=== PATIENT | male | born 1975 | race Caucasian/White ===

== ENCOUNTER 2023-12-27 08:51 | Outpatient (AMB) | payer OTHER, SELFPAY ==
--- NOTE | 2023-12-27 08:53 | MHC.OFFVISWM ---
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 Allergies No Known Allergies Allergy (Verified 12/27/23 09:00) Medication List - Last Reconciled 12/27/23 by Rob De Los Santos MD No Known Home Meds HPI Comments Details: Previous weight loss efforts: Keto diet, WW, exercise Sleeps: 9am-2pm (on working days), 11pm-7am on off days Breakfast: 7.30am (eggs and toast0 Lunch: 2pm (steak, rice) Dinner: 5.30pm (same Snacks: 1-2 snacks overnight when he works Exercise: Will buy an aerobic machine Fluids: Coffee/tea: no, Regular Coke: daily, juice: 3-4/wk (orange juice), ETOH: none PFSH Medical History (Updated 12/27/23 @ 09:01 by Rob De Los Santos MD) Glucose intolerance Diverticulosis Morbid obesity Surgical History Hx of tooth extraction Hx of colonoscopy History of surgery on wrist Hx of appendectomy Hx of cholecystectomy Family History Mother Diabetes Kidney disease Father No problems noted. Daughter No problems noted. Son No problems noted. Social History Alcohol intake: never Patient Tobacco Use Status: Never used Tobacco Physical Exam GI Inspection: Yes normal to inspection, Yes incision (well healed) and Yes obesity Palpation (GI): Soft to palpation Extrem Right lower extremity: normal to inspection Left lower extremity: normal to inspection Assessment & Plan Assessment & Plan (1) Morbid obesity: Code(s): E66.01 - Morbid (severe) obesity due to excess calories Category: Medical Plan: 1.? Plan for lap sleeve gastrectomy. If diaphragmatic or ventral hernias are present at time of surgery, these will be repaired laparoscopically as well. Risks and complications include possible conversion to an open procedure, anastomotic leak, bleeding requiring transfusion, small bowel obstruction, , DVT and pulmonary embolism, cardiac, or pulmonary complications, as assistant terminal manager complications such as anastomotic ulcer, insufficient weight loss and vitamin deficiencies. I emphasized the importance of close follow-up, adherence to instructions and good communication. 2. You will receive a link of our software gris to generate an individualized nutritional and exercise plan specific for you. Please send me a screenshot of the plans you will generate Meal to include lean meat (beef, fish, pork, turkey, chicken), or cape verdean yogurt, or egg whites, or beans with a salad with olive oil and fruits (berries, pears, apples, kiwi). Avoid salt, breads, potatoes, rice, pasta, desserts. ?3. If you choose shakes, each shake would be drunk slowly, like coffee in a period of 2 hours. ?4. If you choose bars, cut each bar in 4 pieces and eat each piece in 30min ?to make each bar last 2 hours. ?5. I emphasized the importance of measuring accurately the food portion and measure it when serving the food in plate ?6. The meal portions include a specific number of forks of meat and salad. You always eat the meat portion but you can replace up to half of salad/vegetables portion with rice, potatoes or pasta, or a fruit ?if you like. The less you do it the better weight loss will be. ?7. One full-size fork is what it can be scooped on the fork without falling aside and not what can be bit with the fork. Use regular forks like those you find in a typical restaurant. ?8.? Please send me weight measurements as soon as possible and then once a week. Always include your diet and exercise plan. 9. The best choice would be to purchase a stationary bike, elliptical or treadmill at home that can track calories. Let me know if you do so I can give you an exercise plan. ?10.?Goal is to lose at least 1.5-2lbs per week ?11. Goal to lose 10% of your weight before surgery, which is about 30lbs. Ultimate weight goal: 273lbs before surgery 12. Please follow the diet plan exactly without any change. If you don't like something about the plan or you feel hungry you need to communicate with me so I can help you revise the plan. You should not change the plan yourself. 13. To be scheduled for EGD to assess the stomach's anatomy. The possibility of biopsies was discussed. Patient needs to avoid use of NSAIDs and aspirin for 1 week prior to EGD. Risks of perforation and bleeding was discussed with the patient. This will be an outpatient procedure with IV sedation.
[2023-12-27 08:59] VITALS: BP 140/87; PULSE 95; TEMP 36.1; O2SAT 97; BMI 40.2
== END 2023-12-27 09:57 | disposition home or self-care (01) ==
PROVIDERS: PCP Internal Medicine; Visit Provider Surgery
DX: E66.813 Obesity, class 3 (principal); E66.01 Morbid (severe) obesity due to excess calories; Z68.41 Body mass index [BMI] 40.0-44.9, adult
CPT/HCPCS: 99204

== ENCOUNTER → 2023-12-27 08:51 | Outpatient (BNVA) | payer OTHER, SELFPAY | PROVIDERS: PCP Internal Medicine; Visit Provider Surgery ==

== ENCOUNTER 2024-01-08 09:41 | Outpatient (REF) | payer OTHER, SELFPAY ==
--- NOTE | 2024-01-08 09:46 | ECG_ITS ---
Test Reason : obesity Blood Pressure : / mmHG Vent. Rate : 067 BPM Atrial Rate : 067 BPM P-R Int : 192 ms QRS Dur : 100 ms QT Int : 384 ms P-R-T Axes : 053 -19 017 degrees QTc Int : 405 ms Normal sinus rhythm Likely normal EKG No previous ECGs available Referred By: Rob De Los Santos Electronically Signed By:DILLAN NORTON
[2024-01-08 10:59] LABS: Basophils Percent Auto 0.3 % (0-2); Eosinophils Absolute Auto 0.2 X10*3/uL (0.0-0.4); Eosinophils Percent Auto 2.5 % (0-4); Hematocrit 46.2 % (42.0-52.0); Hemoglobin 15.5 g/dl (14.0-18.0); Imm Gran Abs Auto 0.02 X10*3/uL (0.00-0.03); Imm Gran Pct Auto 0.3 % (0.0-0.4); Lymphocytes Percent Auto 30.4 % (20-40); MANUAL DIFF FLAG NO; Mean Corpuscular HGB Conc 33.5 g/dl (31.0-36.0); Mean Corpuscular Hemoglobin 29.5 pg (27.0-33.0); Mean Platelet Volume 11.5 fL (9.4-12.4); Monocytes Absolute Auto 0.5 X10*3/uL (0.1-1.2); Monocytes Percent Auto 7.9 % (2-11); Neutrophils Absolute Auto 3.8 x10*3/uL (2.0-8.3); Neutrophils Percent Auto 58.6 % (45-73); Platelet Count 205 X10*3/uL (160-400); Red Blood Count 5.25 X10*6/uL (4.60-5.80); Red Cell Distribution Width 13.5 % (11.0-16.0); White Blood Count 6.4 X10*3/uL (4.8-10.8)
[2024-01-08 11:06] LABS: Estimated Average Glucose 126 mg/dL; Hemoglobin A1C 160.2095 umol/L; Total Hemoglobin (HGBA1C) 3845.4248 umol/L
[2024-01-08 11:48] LABS: Alanine Aminotransferase 62 U/L (0-40); Albumin Level 4.3 g/dL (3.5-5.0); Alkaline Phosphatase 66 U/L (39-117); Anion Gap 14 (12-20); Aspartate Amino Transferase 59 U/L (5-37); Bilirubin Total 0.5 mg/dL (0.0-1.0); Blood Urea Nitrogen 18 mg/dL (9-16); C Reactive Protein 1.07 mg/dL (< or = 0.50); Calcium 9.4 mg/dL (8.4-10.2); Carbon Dioxide 27 mmol/L (22-29); Chloride 103 mmol/L (96-108); Cholesterol 137 mg/dL (<200); Estimated Glomerular Filt Rate > 60; Glucose Random 110 mg/dL (60-115); HDL Cholesterol 30 mg/dL (>40); Iron 93 mcg/dL (45-160); LDL Cholesterol Calculated 83 mg/dL (<100); Percent Iron Saturation 27 % (15-50); Potassium 3.8 mmol/L (3.3-5.1); Sodium 140 mmol/L (135-145); Total Iron Binding Capacity 342 mcg/dL (228-428); Triglycerides 121 mg/dL (<150); Unsaturated Iron Binding 249 ug/dL
[2024-01-08 11:57] LABS: Ferritin 377 ng/mL (20-250); TSH reflex Free T4 0.81 uIU/mL (0.32-4.0); Vitamin D 25-OH Total 12.7 ng/mL (>30)
[2024-01-08 12:03] LABS: Folate 7.3 ng/mL (> or = 4.0); Vitamin B12 458 pg/mL (200-900)
[2024-01-08 12:22] LABS: Insulin 20 uU/mL (2-29)
[2024-01-12 22:03] LABS: Zinc 84 mcg/dL (60-130)
[2024-01-14 04:34] LABS: Vitamin A 40 mcg/dL (38-98)
[2024-01-14 15:13] LABS: Vitamin B1 7 nmol/L (8-30)
== END 2024-01-08 09:42 | disposition home or self-care (01) ==
LOC: HO.XRAY 09:41
PROVIDERS: PCP Internal Medicine; Visit Provider Surgery
DX: E66.01 Morbid (severe) obesity due to excess calories (principal); E74.39 Other disorders of intestinal carbohydrate absorption; Z13.1 Encounter for screening for diabetes mellitus
CPT/HCPCS: 36415; 71046; 80053; 80061; 82306; 82607; 82728; 82746; 83036; 83525; 83540; 84425; 84443; 84590; 84630; 85025; 86140; 93005

== ENCOUNTER → 2024-01-08 09:46 | Outpatient (BNV) | payer OTHER, SELFPAY | PROVIDERS: PCP Internal Medicine; Visit Provider Internal Medicine | DX: E66.9 Obesity, unspecified (principal) | CPT/HCPCS: 93010 ==

== ENCOUNTER → 2024-01-08 10:15 | Outpatient (BNV) | payer OTHER, SELFPAY | PROVIDERS: PCP Internal Medicine; Visit Provider Radiology Diagnostic Radiology | DX: E66.01 Morbid (severe) obesity due to excess calories (principal) | CPT/HCPCS: 71046 ==

== ENCOUNTER 2024-01-15 08:14 | Outpatient (REF) | payer OTHER, SELFPAY | END 2024-01-15 08:15 | disposition home or self-care (01) | LOC: HO.US 08:14 | PROVIDERS: PCP Internal Medicine; Visit Provider Surgery | DX: E66.01 Morbid (severe) obesity due to excess calories (principal); E74.39 Other disorders of intestinal carbohydrate absorption | CPT/HCPCS: 76700; 76981 ==

== ENCOUNTER → 2024-01-15 08:18 | Outpatient (BNV) | payer OTHER, SELFPAY | PROVIDERS: PCP Internal Medicine; Visit Provider Radiology Diagnostic Radiology | DX: E66.01 Morbid (severe) obesity due to excess calories (principal) | CPT/HCPCS: 76700 ==

== ENCOUNTER 2024-01-21 09:23 | Day surgery (SDC) | payer OTHER, SELFPAY ==
--- NOTE | 2024-01-20 13:33 | HO.ANESPROP2 ---
Documented by User: Diana Mohamud NP 01/20/24 13:33 HPI - Anesthesia Eval Consult details Narrative: 48yo M for Upper Endoscopy [facility] Active Problems Active Problems: All Active Problems Vitamin B12 deficiency (Acute) Vitamin D deficiency (Acute) Glucose intolerance (Acute) Diverticulosis (Acute) Morbid obesity (Acute) Past Medical History Medical History (Updated 01/21/24 @ 09:36 by Dia Lynne RN) Eczema Glucose intolerance Diverticulosis Morbid obesity Family History Family History Mother Diabetes Kidney disease Father No problems noted. Daughter No problems noted. Son No problems noted. Surgical History Surgical History Hx of tooth extraction Hx of colonoscopy History of surgery on wrist Hx of appendectomy Hx of cholecystectomy Social History Social History Alcohol intake: never Patient Tobacco Use Status: Never used Tobacco Use of substances other than those prescribed or required for medical reasons: No Are you DNR?: No Advance Directives: No Advance Directives Information Provided: Yes Meds Allergies Allergy/AdvReac Type Severity Reaction Status Date / Time No Known Allergies Allergy Verified 01/21/24 09:36 Assessment and Plan Assessment Anesthesia Assessment: Chart Reviewed Documented by User: Vani Ly MD 01/21/24 10:04 [facility] Past Medical History Medical History (Updated 01/21/24 @ 09:36 by Dia Lynne RN) Eczema Glucose intolerance Diverticulosis Morbid obesity Family History Family History Mother Diabetes Kidney disease Father No problems noted. Daughter No problems noted. Son No problems noted. Family history of problems with anesthesia: No Surgical History Surgical History Hx of tooth extraction Hx of colonoscopy History of surgery on wrist Hx of appendectomy Hx of cholecystectomy History of Problems with Anesthesia: No Social History Social History Alcohol intake: never Patient Tobacco Use Status: Never used Tobacco Use of substances other than those prescribed or required for medical reasons: No Are you DNR?: No Advance Directives: No Advance Directives Information Provided: Yes Meds Allergies Allergy/AdvReac Type Severity Reaction Status Date / Time No Known Allergies Allergy Verified 01/21/24 09:36 Exam Airway Mallampati Class: III TM Dist: >3cm Neck ROM: Full Assessment and Plan Assessment Anesthesia Assessment: Anesthesia Plan Discussed Final Anesthetic Review Family History of Problems with Anesthesia: No History of Problems with Anesthesia: No NPO: Yes ASA Class: III Final Preanesthetic Review: No Changes in Pt Med Stat, Meds/Allgs Chart Reviewed, Consent Obtained/Reviewed and Anes Risks/Benef Reviewed Patient Risk: Intermediate Procedure Risk: Low Anesthetic Plan Anesthetic Plan: TIVA Disposition: Standard PACU
[2024-01-21 09:50] VITALS: BP 146/100; PULSE 77; RESP 15; TEMP 36.4; O2SAT 94; BMI 38.8
[2024-01-21] MEDS: Lactated Ringers 1,000 ML 80 ML IVCONT (09:57)
--- NOTE | 2024-01-21 10:55 | MHC.SHP ---
Pre-Procedural Eval Section A - 24 Hr Update-Section A only Date of Service: 01/21/24 The patient is an INPATIENT: No The patient has been examined within 24 hours of the surgical procedure. The History & Physical has been completed within 30 days and I have reviewed it.: Yes Section B - Complete if H&P > 30 days Chief Complaint: Morbid (severe) obesity due to excess calories Relevant Family History (Specify if Yes): No Relevant Social History: None Present Medications: None Medical History: No relevant PMH History of Previous Operations: No relevant previous surgery Allergies: Allergies Allergy/AdvReac Type Severity Reaction Status Date / Time No Known Allergies Allergy Verified 01/21/24 09:36 Review of Systems Sugical H&P ROS: Negative: Constitution, Cardiovascular, Respiratory, Neurological, Psychiatric, Hem-Onc, Allergic/Immunologic, Gastrointestinal, Genitourinary, Musculoskeletal, Integumentary, Endocrine and Eyes/Ears/Nose/Throat Exam Surgical H&P Exam: Normal: HEENT, Normal: Heart, Normal: Lungs, Normal: Extremities, Normal: Abdomen, Normal: Skin and Normal: Neurological Plan Diagnosis/Plan: Unchanged (EGD to assess the stomach's anatomy. Risks of bleeding and perforation were discussed with the patient and he is in agreement with the plan.) I have reviewed the history and physical and performed a pertinent physical examination on my patient. No changes have occurred unless specified. Time Spent With Patient Time: Total time managing care of this patient today ____ minutes.
--- NOTE | 2024-01-21 11:01 | PM.OP ---
Brief Operative Note Date of Service: 01/21/24 Pre-op diagnosis: Morbid obesity Post-op diagnosis: same Procedure: PROCEDURE DATE: 01/21/2024 PREOPERATIVE DIAGNOSIS: GERD POSTOPERATIVE DIAGNOSIS: ?Same as above. 1)normal endoscopy PROCEDURE: [id number]-[id number] with biopsies Surgeon: John De Los Santos M.D.. Ph.D. Education Supervisor: None ? Anesthesia: IV sedation Estimated blood loss: ?Minimal FINDINGS AND PROCEDURE: ? OPERATIVE INDICATIONS: ?The patient is a 48 year old male known to me who is interested in bariatric surgery. Based on this information I recommended an upper endoscopy to evaluate the stomach's anatomy. Risks and complications of the surgery were discussed with the patient in advance particularly the possibility of perforation or bleeding that may require surgical intervention. The patient understood the risks and was in agreement with the plan. ? PROCEDURE: After informed consent was obtained by the patient, the patient was ?transferred to the Operating Room and was placed in the supine position.? After successful induction of IV sedation, a mouth block was inserted and the patient was placed in the left lateral decubitus position. An upper endoscopy was performed next, the oropharynx and esophagus appeared within the normal limits. There was no hiatal hernia. The z-line was smooth. Two biopsies were obtained from the distal esophagus 2-3 cm proximal to the GE junction and two additional biopsies from the GE junction. The stomach was entered and it appeared to be of normal size. There was no gastritis. There was no stricture or ulcer. A biopsy was obtained from the gastric fundus and the antrum. No significant bleeding was noted from any of the biopsy sites. Retroflexion of the scope confirmed a normal GE junction. The scope was then advanced into the duodenum which appeared to be normal as well. At that point the duodenum ?and the stomach were decompressed and the scope was withdrawn from the patient's mouth. The patient extubated and was transferred in stable condition to the Recovery Room for further care. I was present and performed all steps of the procedure. There were no residents to assist with this case. Syd De Los Santos M.D., Ph.D. Surgeon: Rob De Los Santos MD Anesthesia: MAC Was an Education Supervisor used for this Procedure?: No Estimated blood loss (mL): 0 IV fluids (mL): 400 Urine output (mL): 0 (No Sharp to record output) Pathology: other (1) antrum x1, 2) fundus x1, 3) GE junction x2, 4) distal esophagus x2) Condition: stable Disposition: PACU
[2024-01-21 12:02] VITALS: BP 100/55; PULSE 115; RESP 18; TEMP 36.6; O2SAT 87
[2024-01-21 12:17] VITALS: BP 106/66; PULSE 95; RESP 18; O2SAT 96
[2024-01-21 12:32] VITALS: BP 112/73; PULSE 95; RESP 18; O2SAT 96
[2024-01-21 12:47] VITALS: BP 126/76; PULSE 91; RESP 18; TEMP 36.8; O2SAT 96
== END 2024-01-21 13:09 | disposition home or self-care (01) ==
PROVIDERS: PCP Internal Medicine; Visit Provider Surgery
PROC: 0DJ08ZZ Inspection of Upper Intestinal Tract, Via Natural or Artificial Opening Endoscopic (ICD-10-PCS; CPT 43235; principal; 2024-01-21 11:00)
DX: K21.9 Gastro-esophageal reflux disease without esophagitis (principal); E66.01 Morbid (severe) obesity due to excess calories; Z68.41 Body mass index [BMI] 40.0-44.9, adult; K57.30 Diverticulosis of large intestine without perforation or abscess without bleeding; E74.39 Other disorders of intestinal carbohydrate absorption; Z90.49 Acquired absence of other specified parts of digestive tract
CPT/HCPCS: 43239; 88305; 88313; 88342; J1596; J2003; J2250; J2704

== ENCOUNTER → 2024-01-21 09:23 | Outpatient (BNV) | payer OTHER, SELFPAY | PROVIDERS: PCP Internal Medicine; Visit Provider Surgery | DX: K21.9 Gastro-esophageal reflux disease without esophagitis (principal) | CPT/HCPCS: 43239 ==

== ENCOUNTER → 2024-01-31 08:34 | Outpatient (AMB) | payer OTHER, SELFPAY ==
--- NOTE | 2024-01-31 09:06 | A.OFFWM_ITS ---
Intake Intake Visit Reasons: (OV) BH Intake Allergies No Known Allergies Allergy (Verified 02/19/24 08:16) [facility] Medical History Obesity Eczema Glucose intolerance Diverticulosis Morbid obesity Surgical History History of esophagogastroduodenoscopy (EGD) Hx of tooth extraction Hx of colonoscopy History of surgery on wrist Hx of appendectomy Hx of cholecystectomy Family History Mother Diabetes Kidney disease Father No problems noted. Daughter No problems noted. Son No problems noted. Social History Household Members: Children Household Members Other:: minor children-joint custody w/ex- Housing: House Are you a primary respite care provider to a significant other at home: No (joint custody of children w/ex-) Do you presently have visiting nurse or other home services: No Alcohol intake: never Patient Tobacco Use Status: Never used Tobacco Behavioral Health Assessment Weight Management Therapy Therapy Notes Details The patient is a 48-year-old male presenting for a behavioral health (BH) assessment as part of a surgical weight loss program. The patient denies any history of mental health treatment or past hospitalizations/crises related to behavioral health. He also denies any current or past safety concerns, including suicidal ideation (SI), suicide attempts (SA), self-harm, or harm to others. Additionally, the patient reports no history of substance use. While there are no significant concerns related to stress or emotional eating, the patient acknowledged using food as a way to cope with mood following particularly challenging workdays due to the demands of his job. He mentioned that he sometimes rewards himself with food after rough days, though he did not indicate that this behavior is excessive or problematic. The patient's Binge Eating Scale (BES) score suggests a low risk for binge eating behavior. The PHQ-9 assessment showed no active symptoms or concerns related to depression. The mental status exam (MSE) was within normal limits, indicating that the patient?s cognitive and emotional functioning is intact and not impaired. The patient?s overall behavioral health is stable, with no evidence of significant mental health concerns or impairments in functioning. There is no indication of major emotional or behavioral issues that would interfere with the surgical weight loss program at this time. From a behavioral health perspective, the patient is cleared to proceed with the weight loss surgery program. It is recommended that the patient continue to monitor emotional eating behaviors, particularly in response to work-related stress, and consider additional strategies for stress management and emotional regulation as needed. Presenting Concerns Referral Source WMP provider. Reason for referral Completion of behavioral health assessment as part of process for weight-loss surgery. Precipitating Event Obesity. Living Situation Current Living Situation Own At risk of losing current housing? No Satisfied with current living situation? Yes Comments PT lives with his 2 children and 3 dogs. Food/Weight/Diet Expectations of change PT goals are to be healthy and loss weight. . Initial goal to lose 10% of his weight before surgery, which is about 30lbs. Ultimate weight goal: 273lbs before surgery. 304Lbs at weight check, Most recent 284L bs. . Meal plan: 4 shakes/bars during the day. 1 meal (8F/F). Exercise plan: stationary bike. 3 days at week. 650 each day. History/Relationship with food At times would reward or praise himself with food. Example of meals before starting the program: Breakfast: cereal with milk. Lunch: 2 cheeseburgers homemade. Dinner: Steak fries or mash potatoes Snacks: All day. AM: chips, candy, PM: same Drinks/Liquids: Soda (2 littler at day). Not as much water. On the days he worked his eating was based on his shift and tends to eat during work hours. History/Relationship with weight [place] as a child. 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 Started gaining weigh when got out of the . In the last 10 years, the patient's Lowest weight was 280Lbs and highest 320Lbs. History/Relationship with dieting WW, Romeo Aparicio. Tried for couple months. W/ [place] lost 30Lbs in aver 3 months. Binge Eating Do you frequently eat large amounts of food in short periods of time, not feeling physically hungry? No Do you feel out of control when you eat a large amount of food in a short period of time? No Do you eat large amounts of food rapidly and typically alone? Yes Night Eating Do you wake up at least once during the night to eat? No If you wake up in the night, do you find that it is necessary to eat something in order to fall back asleep? No Do you have little or no appetite in the morning and feel very hungry in the evening, often overeating between dinner and when you go to bed? No Social History Family history and relationship 8 years ago. 4 brothers. Parents both . + family relationships. Parental/Familial campground caretaker obligations Joint custody. 2 childre. 18 y/o D, 15 y/o S. Developmental history and status None reports. Currently WNL. Social support Children, brothers. Ex-. Community support PCP. Orthodox/Spirituality None. Cultural/Ethnic information . Legal Involvement and History Current or historical involvement with the legal system? [place] until 1999 Education Highest grade completed Bachelor's degree in nursing. Preferred learning style Auditory, Verbal, Written, Learn by doing and Visual Currently enrolled in educational program? No Interested in further educational program? No Educational Interests/Skills Health care system. 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 ) Wants help to find employment? No Meaningful activities Video games, collect [employer] books. Financial Situation Describe current financial situation Comfortable Financial assistance? None Service Service? Yes Mental Health and Addiction Treatment Current/Past substance abuse? No Comments Alcohol: None Cigarettes/Tobacco: None Cannabis/Edibles: None Psychiatric history PT denies ever been in crisis or inpatient for mental health. There is no history and/or current concern about SI/Sa and self-harm or other harm. Medical and Physical Health Summary Additional Medical History not covered in history None reported Sexual History concerns None Physical exam in the last year? Yes Pain Screening Current pain? No Pain in the last few months? No Medications Is the patient compliant with medications? Yes Does the patient have Alexander Guardian in place? Not applicable Does the patient use complimentary health approaches? No Trauma/Abuse History History of trauma? No Questionnaires PHQ-9 Over the last 2 weeks, how often have you been bothered by any of the following problems? 1. Little interest or pleasure in doing things: not at all 2. Feeling down, depressed, or hopeless: not at all 3. Trouble falling or staying asleep, or sleeping too much: not at all 4. Feeling tired or having little energy: not at all 5. Poor appetite or overeating: not at all 6. Feeling bad about yourself - or that you are a failure or have let yourself or your family down: not at all 7. Trouble concentrating on things, such as reading the newspaper or watching television: not at all 8. Moving or speaking so slowly that other people could have noticed. Or the opposite - being so fidgety or restless that you have been moving around a lot more than usual: not at all 9. Thoughts that you would be better off or of hurting yourself in some way: not at all Total score: 0 Depression Screening Interpretation: Negative Depression Screening Done: Yes 08483 - PHQ-9 Billing: Yes Source: Developed by Drs. Richard Tyler, Mandy Greco, Mj Rendon and colleagues, with an educational yamile from [employer]. Assessment & Plan Assessment & Plan (1) Adjustment disorder, unspecified: Code(s): F43.20 - Adjustment disorder, unspecified Qualifiers: Adjustment disorder type: unspecified type Qualified Code(s): F43.20 - Adjustment disorder, unspecified (2) Problems related to inappropriate diet and eating habits: Code(s): Z72.4 - Inappropriate diet and eating habits Plan From a behavioral health perspective, the patient is cleared to proceed with the weight loss surgery. He will be seen post-operatively if additional support is desired, but no further behavioral health intervention is deemed necessary at this time. The patient is encouraged to reach out for support if needed as he progresses through the surgical process and beyond. Coding Level of Care Code New Pt Psy Diag Eval (51422) Patient Type New Diagnoses Adjustment disorder, unspecified type F43.20 Adjustment disorder type: unspecified type Problems related to inappropriate diet and eating habits Z72.4 Additional Codes PHQ-9 - 26522 - PHQ-9 Billing: Yes ([id number]) Time Spent (min) 60
== END ==
PROVIDERS: PCP Internal Medicine; Visit Provider Counselor Mental Health
DX: F43.20 Adjustment disorder, unspecified (principal); Z72.4 Inappropriate diet and eating habits
CPT/HCPCS: 90791

== ENCOUNTER 2024-02-17 09:05 | Outpatient (AMB) | payer OTHER, SELFPAY ==
--- NOTE | 2024-02-17 14:13 | A.OFFVIS_ITS ---
VS Expanded 02/17/24 14:25 Height 6 ft Weight 274 lb BMI 37.2 Body Fat % 34.9 Body Fat Mass 95.7 Fat Free Mass 178.4 Visceral Fat Rating 28.5 Body Water % 49.2 Body Water Mass 134.9 Basal Metabolic Rate/Score 2,356 Intake Visit Reasons: TV Pre Op LSG 02/25/24 Allergies No Known Allergies Allergy (Verified 02/17/24 14:13) Medication List - Last Reconciled 02/17/24 by Rob De Los Santos MD cholecalciferol (vitamin D3) 125 mcg PO DAILY mecobalamin (vitamin B12) 1,000 mcg sublingual DAILY ondansetron 4 mg PO Q12H pantoprazole 40 mg PO DAILY pantoprazole 40 mg PO DAILY polyethylene glycol 3350 17 grams PO DAILY sucralfate 10 mL PO BID thiamine HCl (vitamin B1) 100 mg PO DAILY HPI HPI TV Pre Op LSG 02/25/24: Details: Start time: 2.02pm, End time: 2.32pm ?I spent 25 minutes speaking with the patient on the phone plus an additional 5 minutes reviewing and updating records for a total of 30 minutes HPI Comments Details: Overall weight loss: 29.6lbs, or 9.75% TBWL Is doing the Celebrate Rebuild protein shakes and bars and one meal PFSH Medical History (Updated 02/17/24 @ 14:15 by Rob De Los Santos MD) Obesity Eczema Glucose intolerance Diverticulosis Morbid obesity Surgical History Hx of tooth extraction Hx of colonoscopy History of surgery on wrist Hx of appendectomy Hx of cholecystectomy Family History Mother Diabetes Kidney disease Father No problems noted. Daughter No problems noted. Son No problems noted. Social History Alcohol intake: never Patient Tobacco Use Status: Never used Tobacco Telehealth Telehealth Telehealth Platform: Telephone Location of provider rendering services: practice address Location of patient: address on file Patient Identification confirmed using: Name, : Yes Telehealth method: voice only Patient verbally consented to treatment: Yes Patient verbally consented to billing insurance company: Yes Patient informed of any privacy concerns related to visit: Yes Minutes spent on Phone/Video with Pt.: 30 Assessment & Plan Assessment & Plan (1) Obesity: Code(s): E66.9 - Obesity, unspecified Category: Medical Qualifiers: Obesity type: due to excess calories Obesity classification: adult class 2 (BMI 35 - 39.9) Serious obesity comorbidity presence: without serious comorbidity Body mass index: BMI 37.0-37.9 Qualified Code(s): E66.812 - Obesity, class 2; E66.09 - Other obesity due to excess calories; Z68.37 - Body mass index [BMI] 37.0-37.9, adult Plan: 1. Plan for lap sleeve gastrectomy including upper GI endoscopy. All tests has been completed and reviewed and the patient is cleared for the surgery. ?If diaphragmatic or ventral hernias are present at time of surgery, these will be repaired laparoscopically as well. Risks and complications were discussed in detail including possible conversion to an open procedure, anastomotic leak, bleeding requiring transfusion, small bowel obstruction, , DVT and pulmonary embolism, cardiac, or pulmonary complications, as residential compl ications such as anastomotic ulcer, insufficient weight loss and vitamin deficiencies. I emphasized the importance of close follow-up, adherence to instructions and good communication. So far she has proven to be an excellent communicator and very compliant with all our directions accomplishing a great weight loss. I believe that she is an excellent candidate and she is ready. 2. Preop prescriptions were provided and explained the purpose of each one. Need to be purchased preop. Start Pantoprazole now as you get it from the pharmacy, 1 pill per day. Sucralfate and Zofran are for after surgery as needed. 3. Bowel prep: please do 7 packets ?of Miralax mixing each one with a an 8oz glass of water, crystal light, gatorade zero, or propel ?on 02/23/24 and the same amount on 02/24/24. The Miralax you begin with one packet at a time in 8oz water or crystal light, gatorade zero, or propel ?as early in the day as you can and you do them back to back until you finish them. Continue the protein shakes during ?the bowel prep. 4. Needs to purchase 1oz medicine cups . 5. Needs to purchase Children's liquid Tylenol for postop pain control. 6. Avoid aspirin, motrin, Advil, Aleve, Meloxicam, Excedrin, Ibuprofen, Naproxyn. Tylenol is OK. 7. He needs to purchase the Celebrate 4:1 protein shakes from the hospital's gift shop. 8. Will do basic preop blood work-up any day between Saturday02/18/24 and Saturday02/21/24 fasting for 12 hours and is scheduled to see the Anesthesiologist prior to the day of surgery. 9. Importance of adherence to postop folllow-up and recommendations was underscored and he understands that. 10. Stop food and bars as of tomorrow 02/18/2024 and create an aggressive meal plan with the [employer] and send me a screenshot of the plan you will create 11. No soups, broths or V8 12. The patient's?medical?history has been reviewed and they are considered low risk for post op DVT and therefore DVT prophylaxis is not considered necessary. Travel after surgery was reviewed. The patient has not disclosed any travel plans during the first 30 days after surgery and they have been advised that within the first 30 days after surgery any bus, plane, train or car travel over 2 hours in duration is contraindicated due to the possibility of developing blood clots from immobility. Any travel, needs to include periods of ambulation of 10 minutes in duration every 2 hours.? Patient was instructed to discuss any plans for travel during this period with their bariatric surgeon.? 13. Use your CPAP daily and bring it to the hospital with your mask As of tomorrow, please check your blood pressure daily in the morning. If your blood pressure is: Below 120/70: do not take the Losartan 121/71 to 135/85: take HALF Losartan Over 136/86: take the whole Losartan 14. Please take at the day of surgery the following medications: Lisinopril if the blood pressure that day is high enough to justify it based on the parameters at the previous bullet point. 15. Stop any control pills and don't use them for one month after surgery 16. Absolutely no smoking or vaping, or marijuana until the surgery and for at least the first 4 weeks. Only nicotine patches are allowed. 17. Send me weight measurements on Saturday02/21/24 and then on Saturday02/25/24, the day of surgery before you go to the hospital. 18. Avoid any steroids by mouth for any reason. Let me know if someone prescribes them to you 19. These instructions supersede anything else you read in the handbook, anything you watched in videos or classes or you were told by any other provider. If there is any conflict, you follow the above instructions and nothing else. Orders: Orders TSH reflex Free T4 Today E66.9 - Obesity, unspecified Prothrombin Time INR Today E66.9 - Obesity, unspecified Type and Screen Today E66.9 - Obesity, unspecified Partial Thromboplastin Time Today E66.9 - Obesity, unspecified Complete Blood Count Auto Diff Today E66.9 - Obesity, unspecified Insulin Today E66.9 - Obesity, unspecified Comprehensive Met. Panel Today E66.9 - Obesity, unspecified Lipid Panel Today E66.9 - Obesity, unspecified Hemoglobin A1c Today E66.9 - Obesity, unspecified C Reactive Protein Today E66.9 - Obesity, unspecified Medications: New pantoprazole 40 mg PO DAILY 90 tabs 0RF K21.9 - Gastro-esophageal reflux disea se without esophagitis sucralfate 10 mL PO BID 600 mL 2RF K21.9 - Gastro-esophageal reflux disease without esophagitis polyethylene glycol 3350 Mix each measuring cup with 8oz of water, Crystal light, or Gatorade zero, or Propel and do 7 measuring cups on 02/23/24 and another 7 measuring cups on 02/24/24 17 grams PO DAILY 238 grams 0RF Z01.818 - Encounter for other preprocedural examination ondansetron Only take one every 12 hours as needed if you have nausea 4 mg PO Q12H 20 tabs 0RF nausea and vomiting R11.0 - Nausea
[2024-02-17 14:25] VITALS: BMI 37.2
== END 2024-02-17 14:32 | disposition home or self-care (01) ==
LOC: HO.HBS 09:05
PROVIDERS: PCP Internal Medicine; Visit Provider Surgery
DX: E66.812 Obesity, class 2 (principal); Z68.37 Body mass index [BMI] 37.0-37.9, adult
CPT/HCPCS: 99499

== ENCOUNTER 2024-02-21 07:48 | Outpatient (REF) | payer OTHER, SELFPAY ==
--- NOTE | ~2024-02-21 | FL_ITS ---
EXAMINATION: XR FLUOROSCOPY UPPER GI WITH AIR CLINICAL INFORMATION: Preoperative evaluation prior to bariatric surgery COMPARISON: None TECHNIQUE: Fluoroscopic air contrast upper GI examination was performed utilizing standard techniques with thin and thick barium and effervescent granules. Numerous spot images were obtained. FINDINGS: Dual and single contrast images of the esophagus demonstrate normal caliber, contour, and mucosal pattern. No evidence of stricture, mass, or ulcerations identified. Esophageal peristalsis was normal. A small type I hiatal hernia is present. There is a small diverticulum noted in the lateral portion of the hiatal hernia. No significant gastroesophageal reflux was seen during the course of the examination and on reflux views. Dual contrast and single contrast images of the stomach demonstrated a normal contour. The gastric rugal folds have a thickened appearance, suggestive of gastritis. There is a circumscribed filling defect body in the anterior body of the stomach that likely represents a hyperplastic polyp (RF 1-12 100/176). No masses or ulcerations are seen. Contrast freely passed into the gastric antrum and duodenal bulb without delay. Single and air-contrast images of the duodenal bulb demonstrate no abnormality. The duodenal sweep has a normal appearance, course, and mucosal fold appearance. The imaged proximal jejunum has a normal fold pattern and caliber. FLUOROSCOPY TIME: 3 minutes 39 seconds Number of Spot Images: 10 Number of Cine: 12 DOSE AREA PRODUCT: [id number] uGy-m2 (microgray-meter squared) FL/FL upper GI w air IMPRESSION: 1. Small type I hiatal hernia. 2. Small diverticulum noted in the lateral portion of the hiatal hernia. 3. Thickened appearance of the gastric rugal folds, suggestive of gastritis. 4. Circumscribed filling defect body of stomach anterior wall, consistent with a hyperplastic polyp. This procedure was performed by Mejia Campos PA-C, and supervised by Dr. Cruz Electronically signed by: Haris Cruz MD 02/21/2024 05:11 PM [facility]
== END 2024-02-21 07:49 | disposition home or self-care (01) ==
LOC: HO.XRAY 07:48
PROVIDERS: PCP Internal Medicine; Visit Provider Surgery
DX: E66.01 Morbid (severe) obesity due to excess calories (principal); E74.39 Other disorders of intestinal carbohydrate absorption
CPT/HCPCS: 74246

== ENCOUNTER → 2024-02-21 07:49 | Outpatient (BNV) | payer OTHER, SELFPAY | PROVIDERS: PCP Internal Medicine; Visit Provider Physician Assistant Surgical | DX: E74.39 Other disorders of intestinal carbohydrate absorption (principal) | CPT/HCPCS: 74246 ==

== ENCOUNTER 2024-02-25 05:47 | Day surgery (SDC) | payer OTHER, SELFPAY ==
[2024-02-19 08:12] LABS: MANUAL DIFF FLAG NO
[2024-02-19 08:33] LABS: Basophils Percent Auto 0.3 % (0-2); Eosinophils Absolute Auto 0.2 X10*3/uL (0.0-0.4); Eosinophils Percent Auto 2.4 % (0-4); Hematocrit 45.9 % (42.0-52.0); Hemoglobin 15.6 g/dl (14.0-18.0); Imm Gran Abs Auto 0.02 X10*3/uL (0.00-0.03); Imm Gran Pct Auto 0.3 % (0.0-0.4); Lymphocytes Absolute Auto 2.2 X10*3/uL (1.2-4.9); Lymphocytes Percent Auto 29.1 % (20-40); Mean Corpuscular Hemoglobin 29.6 pg (27.0-33.0); Mean Corpuscular Volume 87.1 fL (80.0-98.0); Mean Platelet Volume 11.7 fL (9.4-12.4); Monocytes Absolute Auto 0.6 X10*3/uL (0.1-1.2); Neutrophils Absolute Auto 4.4 x10*3/uL (2.0-8.3); Neutrophils Percent Auto 59.9 % (45-73); Platelet Count 170 X10*3/uL (160-400); Red Blood Count 5.27 X10*6/uL (4.60-5.80); Red Cell Distribution Width 13.7 % (11.0-16.0); White Blood Count 7.4 X10*3/uL (4.8-10.8)
[2024-02-19 08:42] LABS: Estimated Average Glucose 105 mg/dL; Hemoglobin A1C 140.6522 umol/L; Hemoglobin A1c % 5.3 % (<6.0); Total Hemoglobin (HGBA1C) 4122.9924 umol/L
[2024-02-19 08:48] LABS: Prothrombin Time 11.9 SEC (10.9-12.4)
[2024-02-19 08:50] LABS: Partial Thromboplastin Time 37.4 SEC (26.0-36.8)
[2024-02-19 09:12] LABS: Alanine Aminotransferase 35 U/L (0-40); Albumin Level 4.2 g/dL (3.5-5.0); Alkaline Phosphatase 78 U/L (39-117); Anion Gap 12 (12-20); Aspartate Amino Transferase 35 U/L (5-37); Bilirubin Total 0.4 mg/dL (0.0-1.0); Blood Urea Nitrogen 17 mg/dL (9-16); C Reactive Protein 1.35 mg/dL (< or = 0.50); Calcium 9.2 mg/dL (8.4-10.2); Carbon Dioxide 25 mmol/L (22-29); Chloride 107 mmol/L (96-108); Cholesterol 118 mg/dL (<200); Estimated Glomerular Filt Rate > 60; Glucose Random 96 mg/dL (60-115); HDL Cholesterol 37 mg/dL (>40); LDL Cholesterol Calculated 64 mg/dL (<100); Sodium 140 mmol/L (135-145); Total Protein 7.8 g/dL (6.5-8.0); Triglycerides 88 mg/dL (<150)
[2024-02-19 09:43] LABS: TSH reflex Free T4 1.07 uIU/mL (0.32-4.0)
[2024-02-19 10:43] LABS: Insulin 10 uU/mL (2-29)
[2024-02-19 10:50] VITALS: BMI 36.8
--- NOTE | 2024-02-21 12:34 | P.CONAN_ITS ---
Documented by User: Diana Mohamud NP 02/21/24 12:35 HPI - Anesthesia Eval Consult details Narrative: 48yo M for Gastrectomy Sleeve,EGD,possibel Diaphragmatic Hernia,possible Ventral Hernia,possible Open PMFSH Active Problems Active Problems: All Active Problems Esophagitis determined by biopsy (Acute) Vitamin B1 deficiency (Acute) Vitamin B12 deficiency (Acute) Vitamin D deficiency (Acute) Obesity (Acute) Glucose intolerance (Acute) Diverticulosis (Acute) Morbid obesity (Acute) Past Medical History Medical History Obesity Eczema Glucose intolerance Diverticulosis Morbid obesity Family History Family History Mother Diabetes Kidney disease Father No problems noted. Daughter No problems noted. Son No problems noted. Family history of problems with anesthesia: No Surgical History Surgical History History of esophagogastroduodenoscopy (EGD) Hx of tooth extraction Hx of colonoscopy History of surgery on wrist Hx of appendectomy Hx of cholecystectomy History of Problems with Anesthesia: No Social History Social History Household Members Other:: minor children-joint custody w/ex- Are you a primary post acute care nurse to a significant other at home: No (joint custody of children w/ex-) Do you presently have visiting nurse or other home services: No Alcohol intake: never Patient Tobacco Use Status: Never used Tobacco Use of substances other than those prescribed or required for medical reasons: No Have you been hit, kicked, punched, or otherwise hurt by someone within the past year? If so, by whom?: No Spiritual Healthcare Practices: none Restorationism Healthcare Practices: none Cultural Healthcare Practices: none Are you DNR?: No Advance Directives: No Advance Directives Information Provided: Yes Advance Directives on File: No Recently lost weight without trying: No Eating poorly because of decreased appetite: No Nutrition Risks: No Nutritional Risk Poor oral hygiene: Yes (broken teeth upper left front / some extracted teeth) Meds Allergies Allergy/AdvReac Type Severity Reaction Status Date / Time No Known Allergies Allergy Verified 02/19/24 08:16 Exam Height,Weight and Vital Signs: Height 6 ft Weight 122.924 kg Pertinent Lab Results Pertinent Lab Results: Laboratory Tests 02/19/24 02/19/24 08:01 08:10 WBC 7.4 RBC 5.27 Hgb 15.6 Hct 45.9 MCV 87.1 MCH 29.6 MCHC 34.0 RDW 13.7 Plt Count 170 MPV 11.7 Immature Gran % (Auto) 0.3 Neut % (Auto) 59.9 Lymph % (Auto) 29.1 [place] % (Auto) 8.0 Eos % (Auto) 2.4 Baso % (Auto) 0.3 Lymph # (Auto) 2.2 [place] # (Auto) 0.6 Eos # (Auto) 0.2 Baso # (Auto) 0.0 Abs Immat Gran (auto) 0.02 Absolute Neuts (auto) 4.4 Absolute Nucleated RBC 0.000 Nucleated RBC % (auto) 0.0 PT 11.9 INR 1.0 APTT 37.4 H Sodium 140 Potassium 4.0 Chloride 107 Carbon Dioxide 25 Anion Gap 12 BUN 17 H Creatinine 1.06 Estim Creat Clear Calc TNP Estimated GFR > 60 Random Glucose 96 Estimat Average Glucose 105 Hemoglobin A1c % 5.3 Insulin Level 10 Calcium 9.2 Total Bilirubin 0.4 AST 35 ALT 35 Alkaline Phosphatase 78 C-Reactive Protein 1.35 H Total Protein 7.8 Albumin 4.2 Triglycerides 88 Cholesterol 118 LDL Cholesterol, Calc 64 HDL Cholesterol 37 L TSH 1.07 Blood Type O Positive Antibody Screen NEGATIVE Narrative Narrative: EKG 12/2023 Vent. Rate : 067 BPM Atrial Rate : 067 BPM P-R Int : 192 ms QRS Dur : 100 ms QT Int : 384 ms P-R-T Axes : 053 -19 017 degrees QTc Int : 405 ms Normal sinus rhythm Likely normal EKG No previous ECGs available Assessment and Plan Assessment Anesthesia Assessment: Chart Reviewed Final Anesthetic Review Family History of Problems with Anesthesia: No History of Problems with Anesthesia: No Documented by User: Bridgette Castro MD 02/25/24 08:57 HPI - Anesthesia Eval Consult details Narrative: 48yo M for EGD, Laparoscopic Sleeve Gastrectomy, possible Diaphragmatic Hernia repair, possible Ventral Hernia repair, possible Open PMFSH Active Problems Active Problems: All Active Problems Esophagitis determined by biopsy (Acute) Vitamin B1 deficiency (Acute) Vitamin B12 deficiency (Acute) Vitamin D deficiency (Acute) Obesity (Acute) Glucose intolerance (Acute) Diverticulosis (Acute) Morbid obesity (Acute) Denies [place] Past Medical History Medical History Obesity Eczema Glucose intolerance Diverticulosis Morbid obesity Family History Family History Mother Diabetes Kidney disease Father No problems noted. Daughter No problems noted. Son No problems noted. Family history of problems with anesthesia: No Surgical History Surgical History History of esophagogastroduodenoscopy (EGD) Hx of tooth extraction Hx of colonoscopy History of surgery on wrist Hx of appendectomy Hx of cholecystectomy History of Problems with Anesthesia: No Social History Social History Household Members Other:: minor children-joint custody w/ex- Are you a primary post acute care nurse to a significant other at home: No (joint custody of children w/ex-) Do you presently have visiting nurse or other home services: No Alcohol intake: never Patient Tobacco Use Status: Never used Tobacco Use of substances other than those prescribed or required for medical reasons: No Have you been hit, kicked, punched, or otherwise hurt by someone within the past year? If so, by whom?: No Spiritual Healthcare Practices: none Restorationism Healthcare Practices: none Cultural Healthcare Practices: none Are you DNR?: No Advance Directives: No Advance Directives Information Provided: Yes Advance Directives on File: No Recently lost weight without trying: No Eating poorly because of decreased appetite: No Nutrition Risks: No Nutritional Risk Poor oral hygiene: Yes (broken teeth upper left front / some extracted teeth) Meds Allergies Allergy/AdvReac Type Severity Reaction Status Date / Time No Known Allergies Allergy Verified 02/19/24 08:16 Exam Height,Weight and Vital Signs: Height 6 ft Weight 122.924 kg Vital Signs Temp Pulse Resp BP Pulse Ox O2 Del Method 02/25/24 06:35 98.6 F 86 16 111/78 95 Room Air Pertinent Lab Results Pertinent Lab Results: Laboratory Tests 02/19/24 02/19/24 08:01 08:10 WBC 7.4 RBC 5.27 Hgb 15.6 Hct 45.9 MCV 87.1 MCH 29.6 MCHC 34.0 RDW 13.7 Plt Count 170 MPV 11.7 Immature Gran % (Auto) 0.3 Neut % (Auto) 59.9 Lymph % (Auto) 29.1 [place] % (Auto) 8.0 Eos % (Auto) 2.4 Baso % (Auto) 0.3 Lymph # (Auto) 2.2 [place] # (Auto) 0.6 Eos # (Auto) 0.2 Baso # (Auto) 0.0 Abs Immat Gran (auto) 0.02 Absolute Neuts (auto) 4.4 Absolute Nucleated RBC 0.000 Nucleated RBC % (auto) 0.0 PT 11.9 INR 1.0 APTT 37.4 H Sodium 140 Potassium 4.0 Chloride 107 Carbon Dioxide 25 Anion Gap 12 BUN 17 H Creatinine 1.06 Estim Creat Clear Calc TNP Estimated GFR > 60 Random Glucose 96 Estimat Average Glucose 105 Hemoglobin A1c % 5.3 Insulin Level 10 Calcium 9.2 Total Bilirubin 0.4 AST 35 ALT 35 Alkaline Phosphatase 78 C-Reactive Protein 1.35 H Total Protein 7.8 Albumin 4.2 Triglycerides 88 Cholesterol 118 LDL Cholesterol, Calc 64 HDL Cholesterol 37 L TSH 1.07 Blood Type O Positive Antibody Screen NEGATIVE Airway Mallampati Class: III TM Dist: >3cm Neck ROM: Full Loose/Missing/Broken Teeth: Yes (Poor dentition. Several teeth broken down to gumline. Top front ?cracked) Heart: RRR Lungs: CTAB Assessment and Plan Final Anesthetic Review Family History of Problems with Anesthesia: No History of Problems with Anesthesia: No NPO: Yes ASA Class: III Final Preanesthetic Review: No Changes in Pt Med Stat, Meds/Allgs Chart Reviewed, Consent Obtained/Reviewed and Anes Risks/Benef Reviewed Patient Risk: Intermediate Procedure Risk: Intermediate Assessment/Block/Sedation in SS: Assess/Block/Sedation-SS Anesthetic Plan Anesthetic Plan: GA Disposition: Standard PACU and Inp. Admit - Standard Bed
[2024-02-25] VITALS (12 sets, daily range): BP systolic 111–142; BP diastolic 78–88; PULSE 86–103; RESP 12–22; TEMP 36.2–37.2; O2SAT 92–95; BMI 36.2
[2024-02-25] MEDS: Lactated Ringers 1,000 ML 999 ML IV ×2 (06:46→07:41)
[2024-02-25] MEDS: Aprepitant 32 MG/4.4 ML VIAL IVPUSH (06:47)
--- NOTE | 2024-02-25 07:25 | MHC.SHP ---
Pre-Procedural Eval Section A - 24 Hr Update-Section A only Date of Service: 02/25/24 The patient is an INPATIENT: No The patient has been examined within 24 hours of the surgical procedure. The History & Physical has been completed within 30 days and I have reviewed it.: Yes Section B - Complete if H&P > 30 days Chief Complaint: Morbid (severe) obesity due to excess calories Relevant Family History (Specify if Yes): No Relevant Social History: None Present Medications: None Medical History: No relevant PMH History of Previous Operations: No relevant previous surgery Allergies: Allergies Allergy/AdvReac Type Severity Reaction Status Date / Time No Known Allergies Allergy Verified 02/19/24 08:16 Review of Systems Sugical H&P ROS: Negative: Constitution, Cardiovascular, Respiratory, Neurological, Psychiatric, Hem-Onc, Allergic/Immunologic, Gastrointestinal, Genitourinary, Musculoskeletal, Integumentary, Endocrine and Eyes/Ears/Nose/Throat Exam Surgical H&P Exam: Normal: HEENT, Normal: Heart, Normal: Lungs, Normal: Extremities, Normal: Abdomen, Normal: Skin and Normal: Neurological Plan Diagnosis/Plan: Unchanged I have reviewed the history and physical and performed a pertinent physical examination on my patient. No changes have occurred unless specified. Time Spent With Patient Time: Total time managing care of this patient today ____ minutes.
--- NOTE | 2024-02-25 07:48 | P.BOP_ITS ---
Brief Operative Note Date of Service: 02/25/24 Pre-op diagnosis: Severe obesity with comorbidities (see below) Post-op diagnosis: same (& abdominal adhesions) Procedure: INITIAL PATIENT BMI ON PRESENTATION AT OUR OFFICE: 40.1 kg/m2 LAST BMI BEFORE SURGERY: 36.8 kg/m2 COMORBIDITIES: diverticulitis ?The patient presented to the Weight Management Program with significant obesity that was negatively impacting the patient's comorbidities as listed above.? The program is a phased program with a special focus on preoperative medical weight management to promote substantial weight loss and prepare the patients for the second phase of the program: bariatric surgery. The patient participated in an intensive weekly lifestyle ?intervention and exercise program during which the patient ?has lost between the initial office visit and the last preoperative visit 31.9lbs, or 10.5% of initial actual body weight. It was deemed appropriate for the patient to now have bariatric surgery. In light of the current Covid-19 pandemic and the well documented strong association of obesity and increased risk of worse outcomes if infected with Covid-19 (REFERENCES: https://pubmed.ncbi.nlm.nih.gov/69197211/ ,? https://[facility].ncbi.nlm.nih.gov/65473173/ ), any delay in undergoing bariatric surgery may lead to the patient's worsening health condition and increased?risk of more severe Covid-19 disease if infected. In addition a recent?study from [facility] published in [facility] on 02/06/2021 ([email or web address]) found that, among patients with obesity, substantial weight loss achieved with surgery was associated with improved outcomes of COVID-19 infection. The findings suggest that obesity can be a modifiable risk factor for the severity of COVID-19 infection. In addition, the patient met the BMI-criteria for bariatric surgery based on the BMI on initial presentation. The patient should not be penalized for achieving such weight loss because ?it is not sustainable long-term without surgical intervention and it was achieved in preparation for bariatric surgery ?under my direction and based on my published research ([email or web address]).pdf and? https://www.soard.org/article/[email or web address](43)43753-X/pdf ) ?that a 10% preoperative weight loss improves long-term weight loss after surgery and reduces perioperative complications.? Insurance carriers such as [facility] have endorsed my recommendations ?and have included in their policies criteria to include a 10% preoperative weight loss requirement. PROCEDURE: Esophago-gastroscopy, laparoscopic lysis of adhesions, laparoscopic sleeve gastrectomy and laparoscopic gastropexy INDICATIONS: This is a 48 year-old male who was electively scheduled for laparoscopic, possibly open sleeve gastrectomy. The risks and complications of the procedure were discussed with the patient in advance, particularly the possibility of ; pulmonary embolism; staple line leak; bleeding; GERD; cardiac, pulmonary, or renal complications; as well as long-term problems such as insufficient weight loss, vitamin deficiency, strictures, or ulcers. The patient understood all the risks, and was in agreement to proceed with surgery. DESCRIPTION OF PROCEDURE: After informed consent was obtained from the patient, the patient was given preoperative antibiotics, and was transferred to the operating room. After successful induction of general anesthesia, pneumatic compression devices were placed on both lower extremities. An upper endoscopy was performed next. The oropharynx and esophagus appeared to be within normal limits. There was no diaphragmatic hernia present. The stomach was entered. Then after all fluid and air were suctioned and the stomach was fully decompressed, the scope was withdrawn and secured in the mid esophagus. The patient was then prepped and draped in the usual sterile manner, and abdominal access was established at the right upper quadrant with the Tanisha technique. A 12 mm blunt port was inserted, and the abdomen was insufflated with CO2 to a pressure of 15 mmHg. Under direct visualization, additional ports were placed, specifically two 5 mm Versi-step ports to the left upper quadrant, and a 5 mm Versi-Step port to the right upper quadrant. 1% lidocaine plain was used to infiltrate all port sites as well as all fascia defects. ? PLEASE REVIEW BEFORE TO INCLUDE THIS SENTENCE: There were adhesions in the abdomen involving the omentum and the falciform ligament. Those were lysed compl etely with the ultrasonic device. Following that, the patient was placed in a steep reverse Trendelenburg position. An additional 5 mm port was placed to the right flank for the Mediflex retractor that was used to retract the left lobe of the liver. The gastro-esophageal fat pad was opened with the ultrasonic device (Thunderbeat, Olympus) and the anterior esophagus and hiatus were exposed. The a ngle of His was opened with the ultrasonic device the fundus of the stomach from any diaphragmatic and splenic attachments. I then opened the gastrocolic ligament between the transverse colon and the greater curvature of the stomach with the ultrasonic device to enter the lesser sac and facilitate the ligation of the short gastric vessels. I started at a mid-point along the greater curvature and using the Thunderbeat, all short gastric vessels were divided all the way to the angle of His until the left garett was completely dissected at its entirety. I then divided the gastro-colic l igament distally to a distance of about 3-4 cm proximal to the pylorus. There were extensive congenital adhesions between the pancreas and posterior gastric wall. Those were lysed completely with the ultrasonic device. Adhesiolysis took approximately 45 min to complete. The stomach was then divided transversely with two Endo KAYY-45 purple and four KAYY-60 articulating purple loads using the SIGNIA stapler and loads. Every effort was made that the gastric sleeve had a tubular shape and an even caliber throughout. Once the sleeve resection was completed, the staple line of the gastric sleeve was reinforced with Hemoclips. The resected stomach was retrieved without difficulty from the Tanisha port. A gastropexy was then performed in order to prevent postoperative GERD and partial gastric volvulus. Several interrupted 2.0 Surgidac sutures were placed between the sleeve's staple line and the previously divided greater omentum and gastro-colic ligament using the Endo-Stitch device. ?An upper endoscopy was performed. There was no narrowing at the GE junction. The scope was easily advanced all the way to the pylorus which was clearly visualized. There was no narrowing anywhere and the sleeve's caliber was even throughout. The sleeve's staple line was inspected and there was no evidence of ischemia, bleeding or dehiscence. At that point the gastroscope was withdrawn from the patient?s mouth while we were decompressing the bowel and the stomach from any remaining air. I looked into the lesser sac to see how the sleeve was situating and it was situating well. There was no bleeding from the staple line, spleen, or short gastric vessels. The Mediflex retractor was removed, and the undersurface of the liver was inspected and there was no bleeding. The patient was placed in supine position. I closed the fascial defect of the 12 mm port site with a figure of eight #1 Polysorb suture. Then 30cc Ropivacaine plain with 10 mg of Dexamethasone were used to infiltrate the fascial closure as well as all skin incisions. At this point, the abdomen was deflated, all ports were removed under direct vision, and no bleeding was noted from any of the port sites. The skin incisions were irrigated with saline and were closed with 4-0 absorbable monofilament sutures. Steri-Strips and OpSites were used to cover all incisions. The patient was extubated and was transferred in stable condition to the recovery room for further care. I was present and performed all barrera parts of the procedure. Mr. Cantrell was the mri assistant. There were no residents to assist with this case. Syd De Los Santos MD, PhD, FACS Surgeon: Rob De Los Santos MD Anesthesia: GETA, local and other (TAP block) Was an Senior Program Planner used for this Procedure?: No Senior Program Planner: Toni Cantrell Estimated blood loss (mL): 10 IV fluids (mL): 2,700 Urine output (mL): 0 (No Sharp to record output) Pathology: other (1) Stomach, 2) gastro-esophageal fat pad) Condition: stable Disposition: PACU
--- NOTE | 2024-02-25 07:51 | P.PNGS_ITS ---
Subjective Subjective Date of Service: 02/26/24 Interval history: Feels well. Mild incisional pain. He is tolerating phase 1 bariatric diet Physical Exam 2 Vital Signs: Vital Signs: Last Vital Signs Temp 98.6 F 02/25/24 06:35 Pulse 86 02/25/24 06:35 Resp 16 02/25/24 06:35 BP 111/78 02/25/24 06:35 Pulse Ox 95 02/25/24 06:35 O2 Del Method Room Air 02/25/24 06:35 BMI result Body Mass Index 36.2 GI: Inspection: Yes normal to inspection, Yes incision (clean, dry and intact) and Yes obesity Palpation (GI): Soft to palpation Extrem: Right lower extremity: normal to inspection (no calf tenderness) L eft lower extremity: normal to inspection (no calf tenderness) Objective Data Active Medications Lactated Ringer's (Lr) 1,000 mls @ 100 mls/hr IVCONT .Q10H [facility] Last Admin: 02/25/24 06:46 Dose: Not Given Documented By: JASON Non-Admin Reason: Duplicate Order Lactated Ringer's (Lr) 1,000 mls @ 999 mls/hr IV .Q1H1M [facility] Stop: 02/25/24 08:15 Last Admin: 02/25/24 07:41 Dose: 999 mls/hr Documented By: JASON Labs 02/26/24 06:12 02/26/24 06:12 Procedures Date of Service Date of Service: 02/26/24 Progress Note: A&P Assessment and plan (1) Obesity: Status: Acute Assessment and Plan: s/p laparoscopic sleeve gastrectomy, lysis of adhesions and gastropexy Doing well Will check am labs and if OK the patient will be discharged home (2) BMI 36.0-36.9,adult: Status: Acute (3) Congenital intra-abdominal adhesions: Status: Acute (4) S/P laparoscopic sleeve gastrectomy: Status: Acute Time Spent With Patient Time: Total time managing care of this patient today ____ minutes. Quality Stroke Does the patient have a stroke diagnosis?: No VTE Prior VTE?: No VTE Risk Level:: Surgical - moderate VTE Device Contraindication: N/A - Device Ordered VTE Drug Contraindication: Treatment Not Indicated
--- NOTE | 2024-02-25 10:15 | P.DS_ITS ---
DS: Providers Provider Date of Service: 02/26/24 Date of discharge: 02/26/24 Primary care physician: Jose Singh MD DS: Diagnosis Discharge Diagnosis (1) Obesity: Status: Acute (2) BMI 36.0-36.9,adult: Status: Acute DS: Summary Hospital Course Hospital Course: ADMITTING DIAGNOSIS: obesity, ? DISCHARGE DIAGNOSIS: same, s/p laparoscopic sleeve gastrectomy ? PAST SURGICAL HISTORY: appendectomy, laparoscopic cholecystectomy, wrist surgery ? PROCEDURE: upper endoscopy, laparoscopic sleeve gastrectomy ? DISCHARGE SUMMARY: ? History of Present Illness: ? The patient is a?48 year-old male with a BMI of?40.2 kg/m2 and associated co- morbidities as described above. The patient had extensive work-up,lost?25.8 lbs preoperatively and was electively scheduled for laparoscopic, possible open sleeve gastrectomy and gastropexy. Risks and complications of the surgery were discussed with the patient in advance, particularly the possibility of , pulmonary embolism, anastomotic leak, bleeding, bowel injury, GERD, cardiac, renal or pulmonary complications. The patient understood all the risks and was in agreement with the surgical plan. ? Hospital Course: ? The patient underwent an uneventful laparoscopic sleeve gastrectomy with gastropexy on the day of admission. Postoperatively, the patient was transferred to the surgical floor. The patient received IV Acetaminophen and IV dilaudid for pain control. Patient was started on bariatric phase 1 diet POD #0. On postoperative day one, the patient was feeling well without nausea, vomiting, fevers, or tachycardia. The patient had some mild incisional pain and the abdomen was soft. ? On the morning of postoperative day one, the patient was continued on 1 ounce of water or ice every half hour. During the day, the patient did fairly well, having some incisional pain, but able to ambulate adequately and to tolerate liquids well. ? Since the patient is doing well, we decided that the patient was ready to be discharged. The patient was given instructions to follow-up with me next week and to call my office for any fever over 101, persistent abdominal pain, nausea, vomiting, GERD, symptoms of DVT such as calf tenderness, or leg swelling, or pulmonary embolism such as chest pain or shortness of breath. The patient was also instructed to drink 40-60 ounces of liquids per day using the 1-ounce cups. The patient had been given prescriptions for Tylenol for pain, Zofran prn for nausea, and pantoprazole and carafate previously. The patient was encouraged to ambulate and use the incentive spirometer. The patient was allowed to shower, but no baths, and encouraged to stay active at home. All of these instructions were given to the patient personally. All questions were answered and the patient understood all instructions, the instructions were also given to the patient in print. Time Attestation Total time managing care of this patient today: 25 mintues. Discharge Coordination Time (in mins): 25 Quality: Safe Use of Opioids Does Pt have an Active Cancer Diagnosis on the Problem List?: No Quality: Stroke Does the patient have a stroke diagnosis?: No Physical Exam Vital Signs: Vital Signs: Last Vital Signs Temp 98.6 F 02/25/24 06:35 Pulse 86 02/25/24 06:35 Resp 16 02/25/24 06:35 BP 111/78 02/25/24 06:35 Pulse Ox 95 02/25/24 06:35 O2 Del Method Room Air 02/25/24 06:35 BMI result Body Mass Index 36.2 DS: Data Data Completed and Pending Pending studies at discharge: Pending at discharge 02/25/24 09:35 Surgical [PTH] Routine Discharge Plan Discharge Patient Disposition: Home, Self-Care Referrals: Jose Singh MD [Primary Care Provider] - 1 Week Discharge Medications: Continued pantoprazole 40 mg tablet,delayed release (DR/EC) 40 mg PO DAILY Qty: 90 0RF sucralfate 100 mg/mL suspension 10 ml PO BID Qty: 600 2RF ondansetron 4 mg tablet,disintegrating 4 mg PO Q12H Qty: 20 0RF Rx Instructions: Only take one every 12 hours as needed if you have nausea Discontinued cholecalciferol (vitamin D3) 125 mcg (5,000 unit) capsule 125 mcg PO DAILY Qty: 90 0RF mecobalamin (vitamin B12) 1,000 mcg tablet,disintegrating 1,000 mcg sublingual DAILY Qty: 90 0RF Rx Instructions: place tablet under tongue and allow to dissolve for at least30 secs before swallowing thiamine HCl (vitamin B1) 100 mg tablet 100 mg PO DAILY Qty: 90 0RF Discharge Orders: Discharge Order (Routine); Ordered 02/26/24 Ordered By: Rob De Los Santos Activity Restrictions/Additional Instructions: No tub baths, sex or returning to work until discussed at first post op appointment. No exercise, alcohol, tobacco or illegal drug use. Continue to use incentive spirometer hourly while awake. Walk in home for 5- 10 minutes every 2 hours during the first week. Follow all instructions in the bariatric handbook and call with any questions.Discharge Instructions 1. Please call your doctor or come back to the emergency room should any new symptoms arise. 2. You will receive a courtesy call from [facility] 24-48 hours after discharge. 3. Activity: abstain from alcohol, practice limited stair climbing, no bending, no driving, no exercise, no illicit substances, no lifting, no sex, no tub bath, no work. 4. Diet: continue as discussed with Dr. De Los Santos. 5. Dressing Change/Wound Care: Your incision is covered by clear bandages and guaze underneath. If the area is tender, you may apply an ice pack for short intervals (no more than 20 minutes on, followed by at least 20 minutes off). Do not apply heat. Do not use creams, lotions, or topical antibiotics unless instructed to do so by your surgeon. These can cause infection or allergic reaction. 6. Call your doctor if: - Your temperature exceeds 101.5 F - You experience excessive pain or swelling - You have an unexpected reaction to medication - You have excessive bleeding - You experience continued vomiting/nausea - Your incision begins to separate - Your incision shows signs of infection such as increased redness, swelling, excessive pain, heat, or drainage (light blood or clear fluid is normal) 7. General instructions: No lifting greater than 5 lbs for 1 week and not more than 20lbs the next 3?weeks. No driving until seen at the office in 5-7 days after surgery. If you do not move your bowels in the next 2 days, please tell?Dr. De Los Santos. Please walk around your home every hour or two to prevent blood clots from forming in your legs. You do not need to wake from sleeping to walk. Please sleep in a bed or couch to prevent kinking at the hips and knees. Please take your incentive spirometer (your lung hydropulper operator) home with you and use it for the next few days to prevent pneumonia. You may shower, no hot tubs, baths or swimming pools.?Please follow the post op diet instructions you are?given by Dr De Los Santos? and text me daily at 5-6pm for an update.?If you have any issues or concerns or questions please communicate this to him via text.? The Celebrate shakes have all of the bariatric vitamins you need if you consume these shakes. If you are drinking other protein shakes, you will need to purchase the Celebrate multivitamins and calcium that are available in the [facility] shop on the first floor of the [facility].??Do not take anything without first discussing with Dr De Los Santos. Please make sure you are consuming at least 40 ounces of fluids per day starting the?day AFTER your discharge from the hospital. Always drink 1-2 ml per minute using the 5ml?syringe. If you drink faster you may experience?bloating,?gas pain, burping, nausea or heartburn. In that case please slow down your pace and use the syringe to?understand better the?proper?pace and volume of drinking. Do not hesitate to contact the office with any questions at . The patient's medical history has been reviewed and they are considered low risk for post op DVT and therefore DVT prophylaxis is not considered necessary. Travel after surgery was reviewed. The patient has not disclosed any travel plans during the first 30 days after surgery and they have been advised that within the first 30 days after surgery any bus, plane, train or car travel over 2 hours in duration is contraindicated due to the possibility of developing blood clots from immobility. Any travel, needs to include periods of ambulation of 10 minutes in duration every 2 hours.? The patient was instructed to discuss any plans for travel during this period with their bariatric surgeon. Print Language: Citizen Of [place] Discharge Date/Time: 02/26/24 09:21
--- NOTE | 2024-02-25 10:32 | PHA.MEDREC ---
Addendum entered by Lucila Alegria RPh 02/25/24 10:37: Reviewed by pharmacist Original Note: Pharmacy Consult ? Medication Reconciliation Pharmacy has reviewed the medication reconciliation done by nursing. Claims match med rec.
[2024-02-25 10:41] LABS: Hematocrit 45.6 % (42.0-52.0); Hemoglobin 15.4 g/dl (14.0-18.0)
[2024-02-25 10:59] LABS: Anion Gap 14 (12-20); Blood Urea Nitrogen 16 mg/dL (9-16); Calcium 9.5 mg/dL (8.4-10.2); Carbon Dioxide 23 mmol/L (22-29); Chloride 103 mmol/L (96-108); Creatinine Clr Calc Pharmacy 116.8; Estimated Glomerular Filt Rate > 60; Glucose Random 139 mg/dL (60-115); Potassium 4.3 mmol/L (3.3-5.1); Sodium 136 mmol/L (135-145)
[2024-02-25] MEDS: Lactated Ringers 1,000 ML 100 ML IVCONT ×2 (12:20→22:17)
[2024-02-25] MEDS: ceFAZolin Sodium/Dextrose,Iso 2 GM/50 ML PIGGYBACK IV (13:46)
[2024-02-25] MEDS: Acetaminophen 1,000 MG/100 ML PIGGYBACK 16.7 MG IV ×2 (14:35→20:41)
[2024-02-26] MEDS: Acetaminophen 1,000 MG/100 ML PIGGYBACK 16.7 MG IV (02:30)
[2024-02-26 03:26] VITALS: BP 122/81; PULSE 92; RESP 18; TEMP 36.4; O2SAT 92
[2024-02-26] MEDS: Pantoprazole Sodium 40 MG/10 ML VIAL IVPUSH (05:50)
[2024-02-26 06:17] LABS: MANUAL DIFF FLAG NO
[2024-02-26 06:41] LABS: Anion Gap 14 (12-20); Blood Urea Nitrogen 14 mg/dL (9-16); Calcium 9.7 mg/dL (8.4-10.2); Carbon Dioxide 24 mmol/L (22-29); Chloride 104 mmol/L (96-108); Creatinine Clr Calc Pharmacy 126.5; Estimated Glomerular Filt Rate > 60; Glucose Random 110 mg/dL (60-115); Potassium 4.3 mmol/L (3.3-5.1); Sodium 138 mmol/L (135-145)
[2024-02-26 06:51] LABS: Basophils Percent Auto 0.1 % (0-2); Hematocrit 44.4 % (42.0-52.0); Hemoglobin 15.1 g/dl (14.0-18.0); Imm Gran Abs Auto 0.04 X10*3/uL (0.00-0.03); Imm Gran Pct Auto 0.4 % (0.0-0.4); Lymphocytes Absolute Auto 1.3 X10*3/uL (1.2-4.9); Lymphocytes Percent Auto 12.4 % (20-40); Mean Corpuscular Hemoglobin 29.3 pg (27.0-33.0); Mean Corpuscular Volume 86.2 fL (80.0-98.0); Mean Platelet Volume 11.3 fL (9.4-12.4); Monocytes Absolute Auto 0.7 X10*3/uL (0.1-1.2); Monocytes Percent Auto 6.8 % (2-11); Neutrophils Absolute Auto 8.6 x10*3/uL (2.0-8.3); Neutrophils Percent Auto 80.3 % (45-73); Platelet Count 201 X10*3/uL (160-400); Red Blood Count 5.15 X10*6/uL (4.60-5.80); Red Cell Distribution Width 13.5 % (11.0-16.0); White Blood Count 10.7 X10*3/uL (4.8-10.8)
[2024-02-26 07:04] VITALS: BP 140/87; PULSE 83; RESP 16; TEMP 36.2; O2SAT 94
--- NOTE | 2024-02-26 10:17 | HO.POSTANES ---
Post Anesthesia Evaluation Post Anesthesia Evaluation Date of Service: 02/26/24 Vital Signs: Vital Signs Temp Pulse Resp BP Pulse Ox O2 Del Method 02/26/24 07:04 97.1 F 83 16 140/87 H 94 Room Air 02/26/24 03:26 97.6 F 92 18 122/81 92 Room Air 02/25/24 23:06 97.2 F 99 18 127/81 92 Room Air Anesthesia: General Endotracheal-GETA Mental Status: Awake Pain Control: Satisfactory Nausea/Vomiting: None Hydration: Adequate Anesthesia-Related Issues: No Anes. Related Issues
--- NOTE | 2024-02-26 10:35 | MHC.CM.PN ---
Patient discharged prior to being seen by case management. Patient discharged to home self care. Patient arranged for transportation home.
== END 2024-02-26 09:21 | disposition home or self-care (01) ==
LOC: HO.SSS 10:20 → HO.S3 10:28
PROVIDERS: Physician Assistant Surgical; PCP Internal Medicine; Visit Provider Surgery
PROC: (CPT 43845; principal; 2024-02-25 07:30)
DX: E66.01 Morbid (severe) obesity due to excess calories (principal); Z68.37 Body mass index [BMI] 37.0-37.9, adult; K66.0 Peritoneal adhesions (postprocedural) (postinfection); Q43.3 Congenital malformations of intestinal fixation; K57.30 Diverticulosis of large intestine without perforation or abscess without bleeding; R73.09 Other abnormal glucose; L30.9 Dermatitis, unspecified; K20.80 Other esophagitis without bleeding; E51.9 Thiamine deficiency, unspecified; E53.8 Deficiency of other specified B group vitamins; E55.9 Vitamin D deficiency, unspecified; Z79.899 Other long term (current) drug therapy; Z90.49 Acquired absence of other specified parts of digestive tract
CPT/HCPCS: 43775; 43659; 49329; 36415; 80048; 80053; 80061; 83036; 83525; 84443; 85014; 85018; 85025; 85610; 85730; 86140; 86850; 86900; 86901; 88304; 88305; 88307; 88342; A4649; C9145; J0131; J0690; J1100; J1171; J2003; J2250; J2371; J2405; J2470; J2704; J2795; J3010; J7120

== ENCOUNTER → 2024-02-25 05:47 | Outpatient (BNV) | payer OTHER, SELFPAY | PROVIDERS: PCP Internal Medicine; Visit Provider Surgery | DX: E66.812 Obesity, class 2 (principal); E66.09 Other obesity due to excess calories; Z68.37 Body mass index [BMI] 37.0-37.9, adult; Z68.36 Body mass index [BMI] 36.0-36.9, adult; Q43.3 Congenital malformations of intestinal fixation; Z98.84 Bariatric surgery status | CPT/HCPCS: 43659; 43775; 99024; 99499 ==

== ENCOUNTER 2024-03-02 13:23 | Outpatient (AMB) | payer OTHER, SELFPAY ==
--- NOTE | 2024-03-02 13:37 | MHC.OFFVISWM ---
VS Expanded 03/02/24 13:40 BP 112/74 Blood Pressure Location Rt brachial Blood Pressure Position Sitting Pulse 94 Pulse Source Pulse Oximeter Temp 98.1 F Temperature Source Temporal Artery Scan Pulse Oximetry 98 Oxygen Delivery Method Room Air Height 6 ft Weight 253 lb 6.4 oz BMI 34.4 Body Fat % 32.9 Body Fat Mass 83.4 Fat Free Mass 170.0 Visceral Fat Rating 17.0 Body Water % 46.4 Body Water Mass 117.6 Muscle Mass/Score 161.6 Basal Metabolic Rate/Score 2,323 Intake Visit Reasons: (OV) PO LSG 02/25/24 Donor Services Technician Required: No Allergies No Known Allergies Allergy (Verified 03/02/24 13:51) Medication List - Last Reconciled 03/02/24 by GURJIT Leon pantoprazole 40 mg PO DAILY sucralfate 10 mL PO BID HPI Comments Details: Patient is a pleasant 48-year-old male who returns to the office today in follow-up. He is 6 days post sleeve gastrectomy performed on 02/25/2024. Weight today is 253.4 lb with a BMI of 34.4. Tolerating 3 celebrate rebuild shakes with 2 scoops each. 40-60 oz of fluid per day. He has moved his bowels. Offers no complaints of pain. [facility] Medical History (Updated 02/27/24 @ 00:02 by Alexa Chaidez) Esophagitis determined by biopsy Obesity Eczema Glucose intolerance Diverticulosis Morbid obesity Surgical History (Updated 03/02/24 @ 13:51 by Anya Bruce CMA) S/P laparoscopic sleeve gastrectomy History of esophagogastroduodenoscopy (EGD) Hx of tooth extraction Hx of colonoscopy History of surgery on wrist Hx of appendectomy Hx of cholecystectomy Family History Mother Diabetes Kidney disease Father No problems noted. Daughter No problems noted. Son No problems noted. Social History Household Members: Children Household Members Other:: minor children-joint custody w/ex- Housing: House Are you a primary special needs child caregiver to a significant other at home: No (joint custody of children w/ex-) Do you presently have visiting nurse or other home services: No Alcohol intake: never Patient Tobacco Use Status: Never used Tobacco Physical Exam Vital Signs: Last Vital Signs Temp 98.1 F 03/02/24 13:40 Pulse 94 03/02/24 13:40 BP 112/74 03/02/24 13:40 Pulse Ox 98 03/02/24 13:40 Oxygen Delivery Method Room Air 03/02/24 13:40 BMI result Body Mass Index 34.4 GI Inspection: Yes incision (Clean, dry, intact.) Assessment & Plan Assessment & Plan (1) S/P laparoscopic sleeve gastrectomy: Code(s): Z98.84 - Bariatric surgery status Category: Surgical Plan: POD 6 s/p LSG on 02/25/[address] De Los Santos Weight loss prior to surgery was 25.8 pounds or 8.7 % TBWL. Original weight on 12/27/2023 was 296.2 pounds and op weight was 270.4 pounds. Be sure to text Dr De Los Santos exactly 1 week after surgery your weight from your home scale so he can adjust your meal plan. Continue meal plan until f/u alysha Muñoz in 2 weeks May shower, no submersion in bath for another week Continue abdominal binder with activity and exercise for the next 2 weeks. Exercise prior to surgery was stationary bike and may resume No abdominal exercises for 6 weeks post operatively Will be emailed link to post op video for review Reminded of the pace of drinking, 2 mL per minute, 1 oz/15 min.
[2024-03-02 13:40] VITALS: BP 112/74; PULSE 94; TEMP 36.7; O2SAT 98; BMI 34.4
== END 2024-03-02 14:15 | disposition home or self-care (01) ==
PROVIDERS: PCP Internal Medicine; Visit Provider Physician Assistant Surgical
DX: Z98.84 Bariatric surgery status (principal)
CPT/HCPCS: 99024

== ENCOUNTER → 2024-03-02 13:23 | Outpatient (BNVA) | payer OTHER, SELFPAY | PROVIDERS: PCP Internal Medicine; Visit Provider Physician Assistant Surgical ==

== ENCOUNTER 2024-03-24 15:01 | Outpatient (AMB) | payer OTHER, SELFPAY ==
--- NOTE | 2024-03-24 08:06 | MHC.OFFVISWM ---
VS Expanded 03/24/24 08:09 Height 6 ft Weight 244 lb 5 oz BMI 33.1 Body Fat % 31.8 Body Fat Mass 77.8 Fat Free Mass 166.7 Visceral Fat Rating 23 Body Water % 50.4 Body Water Mass 123.2 Muscle Mass/Score 160.7 Basal Metabolic Rate/Score 2,171 Intake Visit Reasons: (TV) PO LSG 02/25/24 [employer] Examiner Required: No Allergies No Known Allergies Allergy (Verified 03/02/24 13:51) Medication List - Last Reconciled 03/24/24 by GURJIT Leon pantoprazole 40 mg PO DAILY sucralfate 10 mL PO BID HPI Comments Details: This?a?48?yo male who is s/p LSG without hiatal hernia repair on?02/25/2024. Presents for 1 month post op visit. Weight today is 244.5 pounds, with a BMI of 33.1. There has been a 51.7 pound weight loss,(initial weight 296.2 pounds) since starting the program on 12/27/2023 reflecting a 17.4 % total body weight loss and a weight loss of 25.9 pounds since surgery (operative weight 270.4 pounds) reflecting a 9.5 % TBWL since surgery. No complaints of nausea, emesis, abdominal pain or reflux. Reports infrequent but normal bowel movements every 2 days. Present meal plan includes: celebrate rebuild shake (2 scoops per shake) 3 x per day celebrate protein bar 60 oz water daily ? Exercise routine includes: stationary bike at home, 5 x per week, 150-200 kd per session, 25-30 min [facility] Medical History Esophagitis determined by biopsy Obesity Eczema Glucose intolerance Diverticulosis Morbid obesity Surgical History S/P laparoscopic sleeve gastrectomy History of esophagogastroduodenoscopy (EGD) Hx of tooth extraction Hx of colonoscopy History of surgery on wrist Hx of appendectomy Hx of cholecystectomy Family History Mother Diabetes Kidney disease Father No problems noted. Daughter No problems noted. Son No problems noted. Social History Household Members: Children Household Members Other:: minor children-joint custody w/ex- Housing: House Are you a primary primary care nurse practitioner to a significant other at home: No (joint custody of children w/ex-) Do you presently have visiting nurse or other home services: No Alcohol intake: never Patient Tobacco Use Status: Never used Tobacco Telehealth Telehealth Telehealth Platform: Telephone Location of provider rendering services: practice address Location of patient: address on file Patient Identification confirmed using: Name, : Yes Telehealth method: voice only Patient verbally consented to treatment: Yes Patient verbally consented to billing insurance company: Yes Patient informed of any privacy concerns related to visit: Yes Minutes spent on Phone/Video with Pt.: 15 Assessment & Plan Assessment & Plan (1) S/P laparoscopic sleeve gastrectomy: Code(s): Z98.84 - Bariatric surgery status Category: Surgical Plan: Overall doing well and satisfied with current meal plan. Suggest increasing exercise for a goal of 400 calories burned 5 days per week on his stationary bike at home. Encouraged to continue to text weights weekly and with any questions or concerns. Return to clinic as scheduled.
[2024-03-24 08:09] VITALS: BMI 33.1
== END 2024-03-24 15:05 | disposition home or self-care (01) ==
LOC: HO.HBS 15:01
PROVIDERS: PCP Internal Medicine; Visit Provider Physician Assistant Surgical
DX: Z98.84 Bariatric surgery status (principal)
CPT/HCPCS: 99024

== ENCOUNTER → 2024-03-24 15:01 | Outpatient (BNVA) | payer OTHER, SELFPAY | PROVIDERS: PCP Internal Medicine; Visit Provider Physician Assistant Surgical ==